=== PATIENT | female | born 1995 | race Caucasian/White ===

== ENCOUNTER → 2018-01-03 | Outpatient (CLI) | payer OTHER ==
[~2018-01-03] MED LIST: AMOX500 PO; ARIP10 PO; ARIP15 PO; ASPI81CH PO; BC IMPLANT; BUPR150T2 PO; Bactrim Ds Tab1 EACH PO; CEPH250SUA PO; CLON.1 PO; CLON.2TP TP; CLON1 PO; CONCERTA ER PO; CRANBERRY250 MG; Crutch1 EACH MISC; DIPH50 PO; DOCU100 PO; Diflucan100 MG PO; ERGO400 PO; FLUO10; GABA300 PO; GABA400 PO; GENT.3OPSA OD; HIBICLENS120 ML EXT; HYDACE7.5L PO; IBUP400 PO; IBUP600 PO; IBUP800 PO; LITH300C PO; METCAR500 PO; METPHE18ER; METPHE18ER PO; METPHE27ER PO; METPHE5; NEOPOLHCSU OT; NITR100CA PO; ONDA4 PO; OXYC5 PO; PRED10 PO; PROM25 PO; Percocet 5-3251 EACH PO; Prednisone20 MG PO; RANI150 PO; RXONDA4ODT MM; Robaxin500 MG PO; SULTRISS PO; Senna-Docusate1 EACH PO; TOPI50 PO; TRAZ50 PO; Ultram50 MG PO; Verotin-Gr Cap1 EACH PO; Voltaren100 GM TOP; ZIPR40 PO; Zoloft100 MG PO; [UNRECOGNIZED DRUG - OTHER]; [UNRECOGNIZED DRUG - REMARK]; [UNRECOGNIZED DRUG - REMARK]
[2018-01-03 16:16] LABS: Source, Urine Clean Catch
[2018-01-03 16:23] LABS: Specimen Source URINE
[2018-01-03 17:57] LABS: Bilirubin, Urine Neg (Neg); Blood, Urine Neg (Neg); Glucose Qualitative, Urine Neg (Neg); Ketones, Urine Neg (Neg); Leukocyte Esterase, Urine 3+ (Neg); Nitrite, Urine Neg (Neg); Protein, Urine Neg (Neg); Specific Gravity, Urine 1.015 (1.003-1.022); Urobilinogen, Urine NORM (Normal)
[2018-01-03 18:16] LABS: Appearance, Urine Clear (Clear); Color, Urine Yellow (P-Yellow)
[2018-01-03 18:17] LABS: Bacteria Many /hpf; Red Blood Cells, Urine 0-2 /hpf (0-2); Squamous Epithelial Cells Few /hpf (Few); White Blood Cells, Urine 50-100 /hpf (0-5)
[2018-01-04 10:00] LABS: Source Urine
== END | disposition home or self-care (01) ==
LOC: LAB 15:53
PROVIDERS: Obstetrics & Gynecology
DX: Z11.3 Encounter for screening for infections with a predominantly sexual mode of transmission (principal); R82.90 Unspecified abnormal findings in urine
CPT/HCPCS: 81001; 87077; 87086; 87186; 87491; 87591

== ENCOUNTER → 2018-01-19 | Outpatient (CLI) | payer OTHER ==
[~2018-01-19] MED LIST changes: -CRANBERRY250 MG; -DOCU100 PO; -IBUP800 PO; -NITR100CA PO; -Percocet 5-3251 EACH PO; -Verotin-Gr Cap1 EACH PO
[2018-01-20 10:45] LABS: Candida species (DNA Probe) Negative (NEGATIVE); G. vaginalis (DNA Probe) Positive (NEGATIVE); T. vaginalis (DNA Probe) Negative (NEGATIVE)
== END | disposition home or self-care (01) ==
LOC: LAB SHORT 10:26 → LAB 10:26
PROVIDERS: Advanced Practice Midwife
DX: N76.0 Acute vaginitis (principal)
CPT/HCPCS: 87070; 87205; 87480; 87510; 87660

== ENCOUNTER → 2018-01-29 | Outpatient (CLI) | payer OTHER ==
[2018-01-29 17:00] LABS: Source, Urine Clean Catch
[2018-01-29 18:17] LABS: Bilirubin, Urine Neg (Neg); Blood, Urine Neg (Neg); Glucose Qualitative, Urine Neg (Neg); Ketones, Urine Neg (Neg); Leukocyte Esterase, Urine Neg (Neg); Nitrite, Urine Pos (Neg); Protein, Urine Neg (Neg); Urobilinogen, Urine NORM (Normal)
[2018-01-29 18:26] LABS: Color, Urine Yellow (P-Yellow)
[2018-01-29 18:27] LABS: Appearance, Urine Hazy (Clear)
[2018-01-29 18:28] LABS: Bacteria Many /hpf; Red Blood Cells, Urine 0-2 /hpf (0-2); Squamous Epithelial Cells Few /hpf (Few)
== END | disposition home or self-care (01) ==
LOC: LAB 14:32 → LAB SHORT 14:32
PROVIDERS: Obstetrics & Gynecology
DX: R82.99 Other abnormal findings in urine (principal)
CPT/HCPCS: 81001; 87077; 87086; 87186

== ENCOUNTER → 2018-02-16 | Outpatient (CLI) | payer OTHER ==
[~2018-02-16] MED LIST changes: +CRANBERRY250 MG; +Verotin-Gr Cap1 EACH PO
[2018-02-16 11:28] LABS: Source, Urine Clean Catch
[2018-02-16 14:08] LABS: Appearance, Urine Clear (Clear); Bilirubin, Urine Neg (Neg); Blood, Urine Neg (Neg); Color, Urine Yellow (P-Yellow); Glucose Qualitative, Urine Neg (Neg); Ketones, Urine Neg (Neg); Leukocyte Esterase, Urine Neg (Neg); Nitrite, Urine Neg (Neg); Protein, Urine Neg (Neg); Urobilinogen, Urine NORM (Normal)
[2018-02-16 15:30] LABS: Candida species (DNA Probe) Positive (NEGATIVE); G. vaginalis (DNA Probe) Negative (NEGATIVE); T. vaginalis (DNA Probe) Negative (NEGATIVE)
== END | disposition home or self-care (01) ==
LOC: LAB 11:22 → LAB SHORT 11:22
PROVIDERS: Obstetrics & Gynecology
DX: N89.8 Other specified noninflammatory disorders of vagina (principal); Z87.440 Personal history of urinary (tract) infections
CPT/HCPCS: 81003; 87480; 87510; 87660

== ENCOUNTER → 2018-02-22 | Outpatient (CLI) | payer OTHER ==
[2018-02-22 18:28] LABS: Appearance, Urine Clear (Clear); Bilirubin, Urine Neg (Neg); Blood, Urine Neg (Neg); Color, Urine Yellow (P-Yellow); Glucose Qualitative, Urine Neg (Neg); Ketones, Urine Neg (Neg); Leukocyte Esterase, Urine 3+ (Neg); Nitrite, Urine Neg (Neg); Protein, Urine Neg (Neg); Specific Gravity, Urine 1.015 (1.003-1.022); Urobilinogen, Urine NORM (Normal)
[2018-02-22 18:39] LABS: Bacteria Few /hpf; Squamous Epithelial Cells Mod /hpf (Few)
== END ==
LOC: LAB SHORT 16:45 → LAB 16:45
PROVIDERS: Obstetrics & Gynecology
DX: R30.0 Dysuria (principal)
CPT/HCPCS: 81001; 87077; 87086; 87186

== ENCOUNTER → 2018-06-26 | Outpatient (CLI) | payer OTHER ==
[~2018-06-26] MED LIST changes: +NITR100CA PO
== END ==
LOC: LAB SHORT 11:32 → LAB 11:32
DX: Z34.80 Encounter for supervision of other normal pregnancy, unspecified trimester (principal)
CPT/HCPCS: 87081; 87653

== ENCOUNTER 2019-03-13 09:57 | Emergency (ER) | payer OTHER ==
[~2019-03-13] VITALS: Ht 172.7 cm; Wt 83.9 kg
[~2019-03-13 09:57] MED LIST changes: +DOCU100 PO; +IBUP800 PO; +Percocet 5-3251 EACH PO
[2019-03-13] MEDS ORDERED: EPIPEN 2-P0.3 MG/0.3 IM (11:06)
[2019-03-13] MEDS ORDERED: Pepcid20 MG PO (11:06)
[2019-03-13] MEDS ORDERED: BENADRYL25 MG PO (11:06)
== END 2019-03-13 11:25 | disposition home or self-care (01) ==
LOC: ER 09:57
DX: T63.451A Toxic effect of venom of hornets, accidental (unintentional), initial encounter (principal); T63.441A Toxic effect of venom of bees, accidental (unintentional), initial encounter; Z87.891 Personal history of nicotine dependence; Z91.030 Bee allergy status; Z88.5 Allergy status to narcotic agent; Z88.8 Allergy status to other drugs, medicaments and biological substances
CPT/HCPCS: 96374; 96375; 99283-25; J1100; J1200; J2405

== ENCOUNTER 2019-04-07 08:39 | Emergency (ER) | payer MEDICARE, OTHER ==
[~2019-04-07] VITALS: Ht 172.7 cm; Wt 81.7 kg
[~2019-04-07 08:39] MED LIST changes: +BENADRYL25 MG PO; +EPIPEN 2-P0.3 MG/0.3 IM; +Pepcid20 MG PO
[2019-04-07 09:46] LABS: BASOPHILS ABSOLUTE AUTO 0.04 K/mm3 (0.00-0.23); BASOPHILS PERCENT AUTO 1 % (0-2); EOSINOPHILS ABSOLUTE AUTO 0.07 K/mm3 (0.00-0.68); EOSINOPHILS PERCENT AUTO 1 % (0-6); Hematocrit 39.9 % (33.0-51.0); IMMATURE GRAN ABSOLUTE AUTO 0.02 K/mm3 (0.00-0.10); IMMATURE GRAN PERCENT AUTO 0 % (0-1); LYMPHOCYTES ABSOLUTE AUTO 1.83 K/mm3 (0.84-5.20); LYMPHOCYTES PERCENT AUTO 21 % (21-46); MONOCYTES ABSOLUTE AUTO 0.59 K/mm3 (0.16-1.47); MONOCYTES PERCENT AUTO 7 % (4-13); Mean Corpuscular HGB 28.8 pg (26.0-34.0); Mean Corpuscular HGB Conc 32.6 g/dL (31.5-36.5); Mean Corpuscular Volume 88 fL (80-100); Mean Platelet Volume 10.4 fL (9.1-12.4); NEUTROPHILS ABSOLUTE AUTO 6.06 K/mm3 (1.96-9.15); NEUTROPHILS PERCENT AUTO 70 % (41-73); Platelet Count 265 K/mm3 (150-400); RDW Coefficient Variation 11.9 % (11.7-14.2); RDW Standard Deviation 38.5 fL (35.1-46.3); Red Blood Cell Count 4.52 M/mm3 (3.80-5.20); White Blood Cell Count 8.61 K/mm3 (4.00-11.30)
[2019-04-07 10:09] LABS: Alanine Aminotransfer (ALT/SGP 18 U/L (12-78); Albumin/Globulin Ratio 1.1 (0.8-1.8); Alk Phos 49 U/L (50-136); Anion Gap 7 mmol/L (6-16); Aspartate Aminotrans (AST/SGOT 5 U/L (12-37); Bilirubin, Total 0.5 mg/dL (0.1-1.0); Blood Urea Nitrogen 10 mg/dL (8-24); Bun/Creatinine Ratio 15.2 (12.0-20.0); CO2, Blood 22 mmol/L (21-32); Calcium, Blood 9.3 mg/dL (8.5-10.1); Chloride, Blood 111 mmol/L (98-108); Creatinine, Blood 0.66 mg/dL (0.40-1.00); Globulin, Blood 3.6 g/dL (2.2-4.0); Glomerular Filtration Rate >60 (60-); Glucose, Blood 97 mg/dL (70-99); Potassium, Blood 3.9 mmol/L (3.5-5.5); Sodium, Blood 140 mmol/L (136-145); Total Protein, Blood 7.6 g/dL (6.4-8.2)
[2019-04-07 10:28] LABS: Beta HCG, Quantitative, Serum 11617 mIU/mL (0-3)
[2019-04-07] MEDS ORDERED: IBUP600 PO (10:48)
[2019-04-07] MEDS ORDERED: Hydrocodone-Ap1 EA23 PO (10:48)
== END 2019-04-07 11:04 | disposition home or self-care (01) ==
LOC: ER 08:39
PROVIDERS: Physician Assistant
DX: G89.18 Other acute postprocedural pain (principal); R10.2 Pelvic and perineal pain; Z91.030 Bee allergy status; Z88.8 Allergy status to other drugs, medicaments and biological substances; Z88.5 Allergy status to narcotic agent; Z79.891 Long term (current) use of opiate analgesic
CPT/HCPCS: 36415; 76856; 80053; 84702; 85025; 86900; 86901; 96374; 99284-25; A9270-GY; J1885

== ENCOUNTER 2020-10-24 20:23 | Emergency (ER) | payer MEDICARE, OTHER ==
[~2020-10-24] VITALS: Ht 172.7 cm; Wt 81.7 kg
[~2020-10-24 20:23] MED LIST changes: +Hydrocodone-Ap1 EA23 PO
[2020-10-24 22:41] LABS: U Amphetamine Screen Not Detected; U Barbituate Screen Not Detected; U Benzodiazapine Screen Not Detected; U Buprenorphine Screen Not Detected; U Cannabinoids Screen DETECTED; U Cocaine Screen Not Detected; U Methadone Screen Not Detected; U Methamphetamine Screen Not Detected; U Opiates Screen Not Detected; U Oxycodone Screen Not Detected; U Phencyclidine Screen Not Detected; U Propoxyphene Screen Not Detected
[2020-10-24 22:46] LABS: Beta HCG, Quantitative, Serum <1 mIU/mL (0-3); Troponin I <0.015 ng/mL (0.000-0.040)
[2020-10-24 23:35] LABS: Calcium, Ionized (POC) 1.23 mmol/L (1.10-1.46); Chloride (POC) 107 mmol/L (98-108); Creatinine (POC) 0.8 mg/dL (0.6-1.0); Glucose (ISTAT POC) 89 mg/dL (70-99); Hemoglobin (POC) 13.3 g/dL (12.0-16.0); Potassium (POC) 3.7 mmol/L (3.5-5.5); Sodium (POC) 140 mmol/L (135-148); Total CO2 (POC) 23 mmol/L (21-32)
== END 2020-10-24 23:55 | disposition home or self-care (01) ==
LOC: ER 20:23
PROVIDERS: Emergency Medicine
DX: F41.9 Anxiety disorder, unspecified (principal); Z91.030 Bee allergy status; Z88.5 Allergy status to narcotic agent; Z87.891 Personal history of nicotine dependence
CPT/HCPCS: 36415; 71046; 80047; 84484; 84702; 85014; 85379; 93005; 93010; 96374; 99284-25; J2060; J7030

== ENCOUNTER → 2020-12-16 | Outpatient (CLI) | payer MEDICARE, OTHER ==
[~2020-12-16] MED LIST changes: +ALBU90OI; +DICLEGIS DR 101 EAC1 PO; +Macrobid 100 M100 MG PO; +ONDA4ODT MM
== END ==
LOC: LAB 17:15 → LAB SHORT 17:15
DX: O20.0 Threatened abortion (principal)
CPT/HCPCS: 84702

== ENCOUNTER → 2021-01-19 | Outpatient (CLI) | payer MEDICARE, OTHER | LOC: LAB SHORT 15:11 → LAB 15:11 | DX: Z33.1 Pregnant state, incidental (principal) | CPT/HCPCS: 36415 ==

== ENCOUNTER 2021-01-25 09:41 | Emergency (ER) | payer MEDICARE, OTHER ==
[~2021-01-25] VITALS: Ht 170.2 cm; Wt 81.7 kg
[~2021-01-25 09:41] MED LIST changes: -ALBU90OI; -DICLEGIS DR 101 EAC1 PO; -Macrobid 100 M100 MG PO; -ONDA4ODT MM
[2021-01-25 11:22] LABS: Source, Urine Voided
[2021-01-25 12:06] LABS: Bilirubin, Urine Neg (Neg); Blood, Urine 1+ (Neg); Glucose Qualitative, Urine Neg (Neg); Ketones, Urine Neg (Neg); Leukocyte Esterase, Urine Neg (Neg); Nitrite, Urine Pos (Neg); Protein, Urine 1+ (Neg); Specific Gravity, Urine 1.015 (1.003-1.022); Urobilinogen, Urine NORM (Normal)
[2021-01-25 12:14] LABS: Appearance, Urine Hazy (Clear); Color, Urine Yellow (P-Yellow)
[2021-01-25 12:15] LABS: Bacteria Many /hpf; Red Blood Cells, Urine 0-2 /hpf (0-2); Squamous Epithelial Cells Few /hpf (Few); White Blood Cells, Urine Rare /hpf (0-5)
[2021-01-25] MEDS ORDERED: DICLEGIS DR 101 EAC1 PO (12:57)
[2021-01-25] MEDS ORDERED: Macrobid 100 M100 MG PO (12:57)
== END 2021-01-25 13:05 | disposition home or self-care (01) ==
LOC: ER 09:41
PROVIDERS: Emergency Medicine
DX: O99.891 Other specified diseases and conditions complicating pregnancy (principal); R10.9 Unspecified abdominal pain; Z3A.11 11 weeks gestation of pregnancy; Z88.5 Allergy status to narcotic agent
CPT/HCPCS: 81001; 87077; 87086; 87186; 99284; A9270

== ENCOUNTER → 2021-01-28 | Outpatient (CLI) | payer MEDICARE, OTHER ==
[~2021-01-28] MED LIST changes: +DICLEGIS DR 101 EAC1 PO; +Macrobid 100 M100 MG PO
[2021-01-28 14:26] LABS: BASOPHILS ABSOLUTE AUTO 0.08 K/mm3 (0.00-0.23); BASOPHILS PERCENT AUTO 1 % (0-2); EOSINOPHILS ABSOLUTE AUTO 0.68 K/mm3 (0.00-0.68); EOSINOPHILS PERCENT AUTO 6 % (0-6); Hemoglobin 13.3 g/dL (11.5-16.0); IMMATURE GRAN ABSOLUTE AUTO 0.03 K/mm3 (0.00-0.10); IMMATURE GRAN PERCENT AUTO 0 % (0-1); LYMPHOCYTES ABSOLUTE AUTO 1.82 K/mm3 (0.84-5.20); LYMPHOCYTES PERCENT AUTO 17 % (21-46); MONOCYTES ABSOLUTE AUTO 0.73 K/mm3 (0.16-1.47); MONOCYTES PERCENT AUTO 7 % (4-13); Mean Corpuscular HGB 29.7 pg (26.0-34.0); Mean Corpuscular HGB Conc 34.1 g/dL (31.5-36.5); Mean Corpuscular Volume 87 fL (80-100); Mean Platelet Volume 10.7 fL (9.1-12.4); NEUTROPHILS ABSOLUTE AUTO 7.26 K/mm3 (1.96-9.15); NEUTROPHILS PERCENT AUTO 68 % (41-73); Platelet Count 285 K/mm3 (150-400); RDW Coefficient Variation 13.1 % (11.7-14.2); RDW Standard Deviation 41.1 fL (35.1-46.3); Red Blood Cell Count 4.48 M/mm3 (3.80-5.20)
[2021-01-28 14:35] LABS: Alanine Aminotransfer (ALT/SGP 18 U/L (12-78); Albumin, Blood 3.7 g/dL (3.4-5.0); Alk Phos 50 U/L (50-136); Anion Gap 7 mmol/L (6-16); Aspartate Aminotrans (AST/SGOT 12 U/L (12-37); Bilirubin, Total 0.6 mg/dL (0.1-1.0); Blood Urea Nitrogen 10 mg/dL (8-24); Bun/Creatinine Ratio 15.5 (12.0-20.0); CO2, Blood 23 mmol/L (21-32); Calcium, Blood 9.3 mg/dL (8.5-10.1); Chloride, Blood 107 mmol/L (98-108); Creatinine, Blood 0.65 mg/dL (0.40-1.00); Globulin, Blood 3.8 g/dL (2.2-4.0); Glomerular Filtration Rate >60 (60-); Glucose, Blood 85 mg/dL (70-99); Potassium, Blood 4.4 mmol/L (3.5-5.5); Sodium, Blood 137 mmol/L (136-145); Total Protein, Blood 7.5 g/dL (6.4-8.2)
== END ==
LOC: LAB SHORT 12:10 → LAB UCHC 12:10
PROVIDERS: Registered Nurse Community Health
DX: R10.9 Unspecified abdominal pain (principal)
CPT/HCPCS: 80053; 85025

== ENCOUNTER 2021-02-19 18:57 | Emergency (ER) | payer MEDICARE, OTHER ==
[~2021-02-19] VITALS: Ht 170.2 cm; Wt 81.7 kg
[2021-02-19 19:49] LABS: BASOPHILS ABSOLUTE AUTO 0.05 K/mm3 (0.00-0.23); BASOPHILS PERCENT AUTO 1 % (0-2); EOSINOPHILS ABSOLUTE AUTO 0.58 K/mm3 (0.00-0.68); EOSINOPHILS PERCENT AUTO 5 % (0-6); Hematocrit 35.1 % (33.0-51.0); Hemoglobin 12.2 g/dL (11.5-16.0); IMMATURE GRAN ABSOLUTE AUTO 0.05 K/mm3 (0.00-0.10); IMMATURE GRAN PERCENT AUTO 1 % (0-1); LYMPHOCYTES ABSOLUTE AUTO 2.44 K/mm3 (0.84-5.20); LYMPHOCYTES PERCENT AUTO 23 % (21-46); MONOCYTES ABSOLUTE AUTO 0.77 K/mm3 (0.16-1.47); MONOCYTES PERCENT AUTO 7 % (4-13); Mean Corpuscular HGB Conc 34.8 g/dL (31.5-36.5); Mean Corpuscular Volume 86 fL (80-100); Mean Platelet Volume 10.6 fL (9.1-12.4); NEUTROPHILS ABSOLUTE AUTO 6.97 K/mm3 (1.96-9.15); NEUTROPHILS PERCENT AUTO 64 % (41-73); Platelet Count 253 K/mm3 (150-400); RDW Coefficient Variation 12.9 % (11.7-14.2); RDW Standard Deviation 40.5 fL (35.1-46.3); Red Blood Cell Count 4.07 M/mm3 (3.80-5.20); White Blood Cell Count 10.86 K/mm3 (4.00-11.30)
[2021-02-19 20:12] LABS: Alanine Aminotransfer (ALT/SGP 14 U/L (12-78); Albumin, Blood 3.2 g/dL (3.4-5.0); Albumin/Globulin Ratio 0.9 (0.8-1.8); Alk Phos 45 U/L (50-136); Anion Gap 6 mmol/L (6-16); Aspartate Aminotrans (AST/SGOT 8 U/L (12-37); Bilirubin, Total 0.3 mg/dL (0.1-1.0); Blood Urea Nitrogen 10 mg/dL (8-24); Bun/Creatinine Ratio 14.6 (12.0-20.0); CO2, Blood 23 mmol/L (21-32); Calcium, Blood 9.1 mg/dL (8.5-10.1); Chloride, Blood 108 mmol/L (98-108); Creatinine, Blood 0.69 mg/dL (0.40-1.00); Globulin, Blood 3.6 g/dL (2.2-4.0); Glomerular Filtration Rate >60 (60-); Glucose, Blood 84 mg/dL (70-99); Potassium, Blood 3.6 mmol/L (3.5-5.5); Sodium, Blood 137 mmol/L (136-145); Total Protein, Blood 6.8 g/dL (6.4-8.2)
[2021-02-19] MEDS ORDERED: ALBU90OI (20:39)
[2021-02-19 20:54] LABS: Source, Urine Voided
[2021-02-19 20:56] LABS: Bilirubin, Urine Neg (Neg); Blood, Urine Neg (Neg); Glucose Qualitative, Urine Neg (Neg); Ketones, Urine Neg (Neg); Leukocyte Esterase, Urine Neg (Neg); Nitrite, Urine Pos (Neg); Protein, Urine Neg (Neg); Urobilinogen, Urine NORM (Normal)
[2021-02-19 21:01] LABS: Appearance, Urine Clear (Clear); Color, Urine Pale Yellow (P-Yellow)
[2021-02-19 21:03] LABS: Bacteria Many /hpf; Red Blood Cells, Urine Not Seen /hpf (0-2); Squamous Epithelial Cells Many /hpf (Few); White Blood Cells, Urine 0-2 /hpf (0-5)
[2021-02-19] MEDS ORDERED: ONDA4ODT MM (21:14)
== END 2021-02-19 21:29 | disposition home or self-care (01) ==
LOC: ER 18:57
PROVIDERS: Emergency Medicine; Physician Assistant
DX: O99.891 Other specified diseases and conditions complicating pregnancy (principal); R20.0 Anesthesia of skin; R11.0 Nausea; R42 Dizziness and giddiness; Z88.5 Allergy status to narcotic agent; Z91.030 Bee allergy status; Z3A.15 15 weeks gestation of pregnancy
CPT/HCPCS: 36415; 80053; 81001; 85025; 93005; 93010; 99284-25; J7030

== ENCOUNTER → 2021-02-23 | Outpatient (CLI) | payer MEDICARE, OTHER ==
[~2021-02-23] MED LIST changes: +ALBU90OI; +ONDA4ODT MM
== END ==
LOC: LAB UCHC 14:20 → LAB SHORT 14:20
DX: O99.891 Other specified diseases and conditions complicating pregnancy (principal); R30.9 Painful micturition, unspecified
CPT/HCPCS: 87077; 87086; 87186

== ENCOUNTER → 2021-03-09 | Outpatient (CLI) | payer MEDICARE, OTHER ==
[2021-03-09 10:48] LABS: Source, Urine Clean Catch
[2021-03-09 13:30] LABS: Appearance, Urine Cloudy (Clear); Bilirubin, Urine Neg (Neg); Blood, Urine Neg (Neg); Color, Urine Yellow (P-Yellow); Glucose Qualitative, Urine Neg (Neg); Ketones, Urine 1+ (Neg); Leukocyte Esterase, Urine 1+ (Neg); Nitrite, Urine Pos (Neg); Protein, Urine 1+ (Neg); Specific Gravity, Urine 1.025 (1.003-1.022); Urobilinogen, Urine 2+ (Normal)
[2021-03-09 14:56] LABS: Amorphous Heavy (0-Heavy); Bacteria Many /hpf; Red Blood Cells, Urine Not Seen /hpf (0-2); Squamous Epithelial Cells Few /hpf (Few)
== END | disposition home or self-care (01) ==
LOC: LAB SHORT 10:45 → LAB 10:45
PROVIDERS: Obstetrics & Gynecology
DX: R82.90 Unspecified abnormal findings in urine (principal)
CPT/HCPCS: 81001; 87077; 87086; 87186

== ENCOUNTER → 2021-04-05 | Outpatient (CLI) | payer MEDICARE, OTHER ==
[2021-04-05 16:10] LABS: Source, Urine Clean Catch
[2021-04-05 17:22] LABS: Appearance, Urine Clear (Clear); Bilirubin, Urine Neg (Neg); Blood, Urine 1+ (Neg); Color, Urine Yellow (P-Yellow); Glucose Qualitative, Urine Neg (Neg); Ketones, Urine Neg (Neg); Leukocyte Esterase, Urine 1+ (Neg); Nitrite, Urine Pos (Neg); Protein, Urine 1+ (Neg); Urobilinogen, Urine NORM (Normal)
[2021-04-05 17:29] LABS: Bacteria Many /hpf; Red Blood Cells, Urine 0-2 /hpf (0-2); Squamous Epithelial Cells Many /hpf (Few)
== END | disposition home or self-care (01) ==
LOC: LAB SHORT 16:04 → LAB 16:04
PROVIDERS: Obstetrics & Gynecology
DX: R82.90 Unspecified abnormal findings in urine (principal)
CPT/HCPCS: 81001; 87077; 87086; 87186

== ENCOUNTER → 2021-06-01 | Outpatient (CLI) | payer MEDICARE, OTHER | LOC: LAB 17:09 → LAB SHORT 17:09 | DX: R82.90 Unspecified abnormal findings in urine (principal); Z88.5 Allergy status to narcotic agent; Z88.8 Allergy status to other drugs, medicaments and biological substances; Z91.038 Other insect allergy status | CPT/HCPCS: 87077; 87086; 87186 ==

== ENCOUNTER → 2021-07-19 | Outpatient (CLI) | payer MEDICARE, OTHER ==
[~2021-07-19] MED LIST changes: +CYCL10 PO
== END | disposition home or self-care (01) ==
LOC: LAB SHORT 17:22 → LAB 17:22
DX: Z34.83 Encounter for supervision of other normal pregnancy, third trimester (principal)
CPT/HCPCS: 87081; 87150

== ENCOUNTER → 2021-08-03 | Outpatient (CLI) | payer MEDICARE, OTHER ==
[~2021-08-03] MED LIST changes: +PRENATAL TABLE1 EAC2 PO; +Serevent Disku50 MCG INH
[2021-08-03 16:17] LABS: Source, Urine Clean Catch
[2021-08-03 19:23] LABS: Appearance, Urine Hazy (Clear); Bilirubin, Urine Neg (Neg); Blood, Urine 1+ (Neg); Color, Urine Yellow (P-Yellow); Glucose Qualitative, Urine Neg (Neg); Ketones, Urine Neg (Neg); Leukocyte Esterase, Urine 1+ (Neg); Nitrite, Urine Pos (Neg); Protein, Urine 2+ (Neg); Specific Gravity, Urine 1.015 (1.003-1.022); Urobilinogen, Urine NORM (Normal); pH, Urine 6.5 (5.0-8.0)
[2021-08-03 19:38] LABS: Bacteria Many /hpf; Red Blood Cells, Urine 0-2 /hpf (0-2); Squamous Epithelial Cells Mod /hpf (Few); Transitional Epithelial Cells Few /hpf (0-Rare)
== END | disposition home or self-care (01) ==
LOC: LAB SHORT 16:14 → LAB 16:14
PROVIDERS: Obstetrics & Gynecology
DX: R82.90 Unspecified abnormal findings in urine (principal)
CPT/HCPCS: 81001; 87077; 87086; 87186

== ENCOUNTER 2021-08-04 05:46 | Inpatient (IN) | payer MEDICARE, OTHER ==
[~2021-08-04] VITALS: Ht 170.2 cm; Wt 100.0 kg
[2021-08-04 06:24] LABS: BASOPHILS ABSOLUTE AUTO 0.03 K/mm3 (0.00-0.23); BASOPHILS PERCENT AUTO 0 % (0-2); EOSINOPHILS ABSOLUTE AUTO 0.18 K/mm3 (0.00-0.68); EOSINOPHILS PERCENT AUTO 2 % (0-6); Hematocrit 33.5 % (33.0-51.0); Hemoglobin 10.9 g/dL (11.5-16.0); IMMATURE GRAN ABSOLUTE AUTO 0.06 K/mm3 (0.00-0.10); IMMATURE GRAN PERCENT AUTO 1 % (0-1); LYMPHOCYTES ABSOLUTE AUTO 2.04 K/mm3 (0.84-5.20); LYMPHOCYTES PERCENT AUTO 20 % (21-46); MONOCYTES PERCENT AUTO 6 % (4-13); Mean Corpuscular HGB 27.9 pg (26.0-34.0); Mean Corpuscular HGB Conc 32.5 g/dL (31.5-36.5); Mean Corpuscular Volume 86 fL (80-100); NEUTROPHILS PERCENT AUTO 72 % (41-73); Platelet Count 285 K/mm3 (150-400); RDW Coefficient Variation 14.1 % (11.7-14.2); RDW Standard Deviation 43.9 fL (35.1-46.3); White Blood Cell Count 10.31 K/mm3 (4.00-11.30)
--- NOTE | 2021-08-04 08:15 | NUR ---
08/04/21 0815 Saba Keenan VIABLE FEMALE INFANTY DELIVERED REPEAT SECTION 06/17 APGARS WEIGHING [id number] GRAMS.
[2021-08-05 06:32] LABS: BASOPHILS ABSOLUTE AUTO 0.03 K/mm3 (0.00-0.23); BASOPHILS PERCENT AUTO 0 % (0-2); EOSINOPHILS ABSOLUTE AUTO 0.07 K/mm3 (0.00-0.68); EOSINOPHILS PERCENT AUTO 1 % (0-6); Hematocrit 29.7 % (33.0-51.0); Hemoglobin 9.7 g/dL (11.5-16.0); IMMATURE GRAN ABSOLUTE AUTO 0.07 K/mm3 (0.00-0.10); IMMATURE GRAN PERCENT AUTO 1 % (0-1); LYMPHOCYTES PERCENT AUTO 19 % (21-46); MONOCYTES ABSOLUTE AUTO 1.02 K/mm3 (0.16-1.47); MONOCYTES PERCENT AUTO 8 % (4-13); Mean Corpuscular HGB 28.3 pg (26.0-34.0); Mean Corpuscular HGB Conc 32.7 g/dL (31.5-36.5); Mean Corpuscular Volume 87 fL (80-100); NEUTROPHILS PERCENT AUTO 72 % (41-73); Platelet Count 250 K/mm3 (150-400); RDW Coefficient Variation 14.1 % (11.7-14.2); Red Blood Cell Count 3.43 M/mm3 (3.80-5.20); White Blood Cell Count 12.69 K/mm3 (4.00-11.30)
--- NOTE | 2021-08-05 09:48 | NUR ---
PRESCRIPTION FOR BREAST PUMP FILLED.
--- NOTE | 2021-08-05 13:02 | NUR ---
Pt ambulated to nursery w/nb for sponge bath.
[2021-08-06] MEDS ORDERED: OXYC5 PO (09:43)
[2021-08-06] MEDS ORDERED: IBUP800 PO (09:43)
[2021-08-06] MEDS ORDERED: DOCU100 PO (09:44)
--- NOTE | 2021-08-06 11:42 | NUR ---
DISCHARGE INSTRUCTIONS DISCUSSED WITH PATIENT. QUESTIONS WERE ANSWERED. SHE WILL CALL HER [employer] OR [facility] IF FURTHER QUESTIONS ARISE. PT WAS AMBULATORY AND DISCHARGED HOME WITH HER SO.
== END 2021-08-06 11:27 | disposition home or self-care (01) | DRG 788 ==
LOC: BC 05:46
PROVIDERS: ADMIT Obstetrics & Gynecology
PROC: 10D00Z1 Extraction of Products of Conception, Low, Open Approach (ICD-10-PCS; principal; 2021-08-04 07:30)
DX: O34.211 Maternal care for low transverse scar from previous cesarean delivery (principal); Z3A.39 39 weeks gestation of pregnancy; Z20.822 Contact with and (suspected) exposure to COVID-19; O99.214 Obesity complicating childbirth; E66.9 Obesity, unspecified; Z37.0 Single live birth; Z87.891 Personal history of nicotine dependence; Z88.5 Allergy status to narcotic agent; Z88.8 Allergy status to other drugs, medicaments and biological substances; Z91.038 Other insect allergy status
CPT/HCPCS: 36415; 85025; 86850; 86900; 86901; A9270; J0690; J1100; J1885; J2270; J2405; J2590; J2765; J3010; J7120

== ENCOUNTER 2021-12-20 11:12 | Day surgery (SDC) | payer MEDICARE, OTHER ==
[~2021-12-20] VITALS: Ht 172.7 cm; Wt 88.5 kg
[~2021-12-20 11:12] MED LIST changes: -ALBU90OI; +ALBU90OI INH; +FLUT1DIS5 INH; +Ventolin5 MG/1 ML INH
--- NOTE | 2021-12-20 11:52 | NUR ---
PT ARRIVED TO DAY SURGERY. PT CRYING UPON ARRIVAL ABOUT HAVING SURGERY. AFTER SPEAKING WITH DR. ESCAMILLA PATIENT HAD DECIDED TO CANCEL SURGERY FOR TODAY. PT D/C HOME WITH S/O.
== END 2021-12-20 22:38 | disposition home or self-care (01) ==
LOC: ORSCMMR 11:12 → ORD 12:30 → ORSCMMR 22:38
DX: Z30.2 Encounter for sterilization (principal); Z53.9 Procedure and treatment not carried out, unspecified reason
CPT/HCPCS: J0330; J2250; J2704; J3010; J7120

== ENCOUNTER → 2023-04-12 | Outpatient (CLI) | payer MEDICARE, OTHER ==
[2023-04-12 19:20] LABS: BASOPHILS ABSOLUTE AUTO 0.07 K/mm3 (0.00-0.23); BASOPHILS PERCENT AUTO 1 % (0-2); EOSINOPHILS ABSOLUTE AUTO 0.68 K/mm3 (0.00-0.68); EOSINOPHILS PERCENT AUTO 9 % (0-6); Hematocrit 38.3 % (33.0-51.0); Hemoglobin 12.8 g/dL (11.5-16.0); IMMATURE GRAN ABSOLUTE AUTO 0.02 K/mm3 (0.00-0.10); IMMATURE GRAN PERCENT AUTO 0 % (0-1); LYMPHOCYTES ABSOLUTE AUTO 2.26 K/mm3 (0.84-5.20); LYMPHOCYTES PERCENT AUTO 30 % (21-46); MONOCYTES ABSOLUTE AUTO 0.55 K/mm3 (0.16-1.47); MONOCYTES PERCENT AUTO 7 % (4-13); Mean Corpuscular HGB 29.2 pg (26.0-34.0); Mean Corpuscular HGB Conc 33.4 g/dL (31.5-36.5); Mean Corpuscular Volume 87 fL (80-100); Mean Platelet Volume 11.7 fL (9.1-12.4); NEUTROPHILS ABSOLUTE AUTO 3.96 K/mm3 (1.96-9.15); NEUTROPHILS PERCENT AUTO 53 % (41-73); Platelet Count 234 K/mm3 (150-400); RDW Coefficient Variation 12.6 % (11.7-14.2); RDW Standard Deviation 40.3 fL (35.1-46.3); Red Blood Cell Count 4.39 M/mm3 (3.80-5.20); White Blood Cell Count 7.54 K/mm3 (4.00-11.30)
[2023-04-12 22:02] LABS: Albumin, Blood 3.8 g/dL (3.4-5.0); Albumin/Globulin Ratio 1.1 (0.8-1.8); Bilirubin, Total 0.2 mg/dL (0.1-1.0); Bun/Creatinine Ratio 8.1 (12.0-20.0); Calcium, Blood 9.5 mg/dL (8.5-10.1); Creatinine, Blood 0.98 mg/dL (0.40-1.00); Globulin, Blood 3.4 g/dL (2.2-4.0); Potassium, Blood 4.1 mmol/L (3.5-5.5); Thyroid Stimulating Hormone 1.41 uIU/mL (0.360-4.800); Total Protein, Blood 7.2 g/dL (6.4-8.2)
== END | disposition home or self-care (01) ==
LOC: LAB 17:38 → LAB SHORT 17:38
PROVIDERS: Nurse Practitioner Family
DX: R53.83 Other fatigue (principal); R73.01 Impaired fasting glucose
CPT/HCPCS: 80053; 83036; 84443; 85025

== ENCOUNTER → 2024-01-15 | Outpatient (CLI) | payer MEDICARE, OTHER | END | disposition home or self-care (01) | LOC: LAB SHORT 10:40 → LAB 10:40 | DX: R30.0 Dysuria (principal); S06.9X9D Unspecified intracranial injury with loss of consciousness of unspecified duration, subsequent encounter | CPT/HCPCS: 87077; 87086; 87186 ==

== ENCOUNTER → 2024-04-01 | Outpatient (CLI) | payer MEDICARE, OTHER | END | disposition home or self-care (01) | LOC: LAB SHORT 16:49 → LAB 16:49 | DX: R30.0 Dysuria (principal) | CPT/HCPCS: 87077; 87086; 87186 ==

== ENCOUNTER → 2024-04-10 | Outpatient (CLI) | payer MEDICARE, OTHER ==
[2024-04-10 12:02] LABS: Source, Urine Clean Catch
[2024-04-10 14:35] LABS: Appearance, Urine Cloudy (Clear); Bilirubin, Urine Neg (Neg); Blood, Urine Neg (Neg); Color, Urine Amber (P-Yellow); Glucose Qualitative, Urine Neg (Neg); Ketones, Urine Neg (Neg); Leukocyte Esterase, Urine 1+ (Neg); Nitrite, Urine Pos (Neg); Protein, Urine Neg (Neg); Urobilinogen, Urine NORM (Normal)
[2024-04-10 14:51] LABS: Amorphous Heavy (0-Heavy); Bacteria Many /hpf; Red Blood Cells, Urine 0-2 /hpf (0-2); Squamous Epithelial Cells Few /hpf (Few)
== END ==
LOC: LAB 11:57 → LAB SHORT 11:57
PROVIDERS: Student in an Organized Health Care Education/Training Program
DX: R30.0 Dysuria (principal)
CPT/HCPCS: 81001; 87077; 87086; 87186